=== PATIENT | female | born 1950 | race Caucasian/White ===

== ENCOUNTER → 2018-06-17 | Day surgery (SDC) | payer MEDICARE, OTHER ==
[~2018-06-17] MED LIST: ASPIRIN81 MG PO; ATENOLOL50 MG PO; BIOTIN10 MG PO; CLOPIDOGREL75 MG PO; COLACE100 M1 PO; FENTANYL CITRATE/PF 100MCG/2 ML INJ ONE; FOLIC ACID PO; IRON PO; ISOSORBIDE MONO20 MG PO; ISOSORBIDE PO; METOCLOPRAMIDE HCL 10 MG/2ML VIAL ONE; MIDAZOLAM HCL 2 MG/2 ML VIAL ONE; MORPHINE SULFATE 2 MG/ML SYR ONE; MULTI-VITAMIN1 EACH PO; NORCO 10-325 T1 EACH PO; OMEGA PO; OMEPRAZOLE40 MG PO; POTASSIUM PO; PROPOFOL IV EMULSION 10 MG/ML 20 ML VIAL ONE; SIMVASTATIN20 MG PO; VIT B12 PO; VIT B6 PO; [UNRECOGNIZED DRUG - OTHER] PO
[2018-06-17 14:25] VITALS: BP 143/81
--- NOTE | 2018-06-17 19:02 | Operative Report ---
DATE OF PROCEDURE: June 17, 2018 REFERRING PHYSICIAN: Dr. Guilherme Mejia PROCEDURE PERFORMED: Esophagogastroduodenoscopy with biopsies. INDICATIONS FOR PROCEDURE: Upper abdominal pain, acid reflux. MEDICATION: Patient was done under MAC. Please see anesthesiologist's note. PROCEDURE: With the patient in the left lateral decubitus position, the flexible fiberoptic Olympus gastroscope was introduced into the esophagus under direct visualization without any difficulty. The esophagus appeared to be within normal limits. The scope was then advanced with ease into the stomach, traversing a small hiatal hernia. The patient appears to be status post Shante-en-Y. Anastomosis was intact, but there was some focal nodularity noted at the anastomosis that was biopsied. The scope was then retroflexed, and the fundus appeared to be within normal limits. The scope was then straightened out. Biopsies were obtained from the gastric stump. It was subsequently withdrawn. Patient tolerated the procedure well. IMPRESSION 1. Normal esophagus. 2. Small hiatal hernia. 3. Status post Shante-en-Y, anastomosis intact. Focal nodularity at anastomosis, biopsied. No marginal ulcers were noted. 4. Gastric stump, biopsied. PLAN: Follow up histology. Increase omeprazole to 40 mg 1 p.o. a.c. b.i.d. Add Carafate 1 gram p.o. a.c. t.i.d. and nightly. If the patient's abdominal pain does not improve, we will proceed with CAT scan of the abdomen. Job#: [id number] cc:GUILHERME MEJIA DO
--- OUTSIDE RECORDS SUMMARY | 2018-06-29 10:37 | XMS REPORT | Clinical Summary ---
Author Author [facility] Address Unknown Phone Unavailable Care Team Providers Care Chronometer Assembler Name Role Phone Guilherme Zhang DO PCP Allergies Not on File Current Medications Not on file Active Problems Not on file Encounters Date Type Specialty Care Team Description 12/14/2017 Hospital Procedural Cardiology Capri Sequeira Jr., MD Peripheral vascular Encounter disease 12/14/2017 Hospital Procedural Cardiology Capri Sequeira Jr., MD Peripheral vascular Encounter disease 12/10/2017 Transcribe Access Capri Sequeira Jr., MD Peripheral vascular Orders disease (Primary Dx) after 06/16/2017 Social History Tobacco Use Types Packs/Day Years Used Date Never Assessed Sex Assigned at Date Recorded Not on file Last Filed Vital Signs Not on file Plan of Treatment Health Maintenance Due Date Last Done Comments BREAST CANCER SCREENING 1998 COLON CANCER SCREENING 1998 SHINGRIX VACCINE (#1) 1998 ZOSTER VACCINE 2008 PNEUMOCOCCAL 2013 POLYSACCHARIDE VACCINE AGE 65 AND OVER PNEUMOCOCCAL-13 2013 INFLUENZA VACCINE 04/14/2018 Procedures Procedure Name Priority Date/Time Associated Diagnosis Comments PV PHYSIOLOGIC ARTERIAL Routine 12/14/2017 Peripheral vascular Results for this UPPER EXTREMITY COMPLETE 12:56 PM CDT disease procedure are in the results section. PV PHYSIOLOGIC ARTERIAL Routine 12/14/2017 Peripheral vascular Results for this LOWER EXTREMITY COMPLETE 12:56 PM CDT disease procedure are in the results section. after 06/16/2017 Results * Pv physiologic arterial upper extremity complete (12/14/2017 12:56 PM) Narrative Performed At [facility] Physiologic Arterial Arm Report [id number] [address], [place] [address] Pat.Name:Katie SOTOMAYOR.ID:[id number] .Date: 12/14/2017Refer.MD:CAPRI SEQUEIRA MD Exam Time: 10:58:00 AM Study Type:Physiologic Arm DOBAge:1950,67Y Sex: FEMALE Sonogrphr: Toney Westbrook RN, RVTPat. Stat.:Outpatient TapeVol: DP, CPT - 4: 33544 Echo Event ID:[id number] Order ID:[id number] Reason for Study:bilateral arm weakness. Race: SUMMARY: PULSES: RIGHT LEFT Brachial ++ Radial + + Ulnar + + DOPPLER SIGNALS /ANALOG WAVEFORMS: DOPPLER SIGNALS ANALOG WAVEFORMS ARTERY RIGHT LEFT RIGHT LEFT Subclavian Normal Normal Normal Normal Brachial Normal Normal Normal Normal Radial NormalNormal Normal Normal Ulnar Normal Normal Normal Normal SEGMENTAL PRESSURE: RIGHTLEFT Brachial 148 148 Radial 142 144 Ulnar 143 142 PRELIMINARY FINDINGS: 1.Normal arterial Doppler study of the upper extremities. PHYSICIAN INTERPRETATION: 1.Bilateral upper extremity arterial examination demonstrates no evidenceofocclusive disease. Signed 12/14/2017 03:48 PM Jose J Fox MD Procedure Note Interface, Radiology Results In - 12/14/2017 3:48 PM [facility]T [facility] Physiologic Arterial Arm Report [id number]Name: JUNIOR SOTOMAYOR Tisha.ID: [id number] .Date: 12/14/2017 Refer.MD: CAPRI SEQUEIRA MD Exam Time: 10:58:00 AM Study Type:Physiologic Arm Age: 1 1950,67Y Sex: FEMALE Sonogrphr: Toney Westbrook RN, RVT Pat. Stat.:Outpatient Tape Vol: DP, CPT - 4: 59859 Echo Event ID:[id number] Order ID: [id number] Reason for Study:bilateral arm weakness. Race: SUMMARY: PULSES: RIGHT LEFT Brachial + + Radial + + Ulnar + + DOPPLER SIGNALS / ANALOG WAVEFORMS: DOPPLER SIGNALS ANALOG WAVEFORMS ARTERY RIGHT LEFT RIGHT LEFT Subclavian Normal Normal Normal Normal Brachial Normal Normal Normal Normal Radial Normal Normal Normal Normal Ulnar Normal Normal Normal Normal SEGMENTAL PRESSURE: RIGHT LEFT Brachial 148 148 Radial 142 144 Ulnar 143 142 PRELIMINARY FINDINGS: 1. Normal arterial Doppler study of the upper extremities. PHYSICIAN INTERPRETATION: 1. Bilateral upper extremity arterial examination demonstrates no evidence of occlusive disease. Signed 12/14/2017 03:48 PM Jose J Fox MD Performing Organization Address [facility]/State/Zipcode Phone Number [facility] [address] [place] [address] * Pv physiologic arterial lower extremity complete (12/14/2017 12:56 PM) Narrative Performed At [facility] Physiologic Arterial Leg Report [id number]Name:aKtie SOTOMAYOR.ID:[id number] .Date: 12/14/2017Refer.MD:CAPRI SEQUEIRA MD Exam Time: 10:12:00 AM Study Type:Physiologic Leg DOBAge:1950,67Y Sex: FEMALE Sonogrphr: Toney Westbrook RN, RVTPat. Stat.:Outpatient TapeVol: DP, CPT - 4: 38769 Echo Event ID:[id number] Order ID:[id number] Reason for Study:Tingling and numbness in both feet. Race: SUMMARY: PULSES: RIGHT LEFT Common Femoral + + Popliteal+ + Dorsalis Pedis0 0 Posterior Tibial+ + DOPPLER SIGNALS /ANALOG WAVEFORMS: DOPPLER SIGNALS ANALOG WAVEFORMS ARTERY RIGHT LEFT RIGHT LEFT Common Femoral Normal Normal Normal Normal Superficial Femoral Normal NormalNormalNormal PoplitealNormal NormalNormalNormal Posterior Tibial Normal NormalNormal Normal Dorsalis Pedis Normal NormalNormalNormal SEGMENTAL PRESSURE(mmHg): RIGHT LEFT Brachial 148 146 High Ewabu591 190 Low Goqjn975 182 Calf 077100 Ankle DP 165 167 Ankle [id number] Great Toe [id number] ANKLE/BRACHIAL INDEX: RIGHTLEFT Dorsalis Pedis1.111.13 Posterior Tibial1.09 1.11 TOE/BRACHIAL INDEX: RIGHT LEFT 0.910.89 PRELIMINARY FINDINGS: 1.Normal arterial Doppler study of the lower extremities. PHYSICIAN INTERPRETATION: 1.Bilateral lower extremity arterial exam demonstrates no evidence of occlusive disease. Signed 12/14/2017 04:02 PM Jose J Fox MD Procedure Note Interface, Radiology Results In - 12/14/2017 4:03 PM CDT [facility] Physiologic Arterial Leg Report [id number] [place] [address] Pat.Name: JUNIOR SOTOMAYOR.ID: [id number] St.Date: 12/14/2017 Refer.MD: CAPRI SEQUEIRA MD Exam Time: 10:12:00 AM Study Type:Physiologic Leg Age: 1 1950,67Y Sex: FEMALE Sonogrphr: Toney Westbrook RN, RVT Pat. Stat.:Outpatient Tape Vol: DP, CPT - 4: 79349 Echo Event ID:[id number] Order ID: [id number] Reason for Study:Tingling and numbness in both feet. Race: SUMMARY: PULSES: RIGHT LEFT Common Femoral + + Popliteal + + Dorsalis Pedis 0 0 Posterior Tibial + + DOPPLER SIGNALS / ANALOG WAVEFORMS: DOPPLER SIGNALS ANALOG WAVEFORMS ARTERY RIGHT LEFT RIGHT LEFT Common Femoral Normal Normal Normal Normal Superficial Femoral Normal Normal Normal Normal Popliteal Normal Normal Normal Normal Posterior Tibial Normal Normal Normal Normal Dorsalis Pedis Normal Normal Normal Normal SEGMENTAL PRESSURE (mmHg): RIGHT LEFT Brachial 148 146 High Thigh 192 190 Low Thigh 184 182 Calf 177 170 Ankle DP 165 167 Ankle PT 162 164 Great Toe 134 132 ANKLE/BRACHIAL INDEX: RIGHT LEFT Dorsalis Pedis 1.11 1.13 Posterior Tibial 1.09 1.11 TOE/BRACHIAL INDEX: RIGHT LEFT 0.91 0.89 PRELIMINARY FINDINGS: 1. Normal arterial Doppler study of the lower extremities. PHYSICIAN INTERPRETATION: 1. Bilateral lower extremity arterial exam demonstrates no evidence of occlusive disease. Signed 12/14/2017 04:02 PM Jose J Fox MD Performing Organization Address City/State/Zipcode Phone Number [facility] [address] [place] [address] after 06/16/2017 Insurance Payer Benefit Subscriber ID Type Phone Address Plan / Group MEDICARE MEDICARE xxxxxxxxxx Medicare [place], [place] PART A AND B COMMERCIAL MISC MISC xxxxxxxxxxxx Commercial COMMERCIAL
--- OUTSIDE RECORDS SUMMARY | 2018-06-29 10:37 | XMS REPORT | Continuity of Care Document ---
Author Author [facility] Interface Address Unknown Phone Unavailable Problems Problem Status Onset Date Classification Date Reported Comments Source RT KNEE OA Active 11/25/2016 [facility] Final: Pain in left knee 12/27/2016 [facility] [place] [place] Final: Muscle weakness 12/27/2016 [facility] [place] Final: Stiffness of unspecified knee, not elsewhere classified 12/27/2016 [facility] [place] Final: Difficulty in walking, not elsewhere classified 12/27/2016 [facility] [place] UNILATERAL PRIMARY OSTEOARTHRITIS, RIGHT Active [facility] [place] UNILATERAL PRIMARY OSTEOARTHRITIS, LEFT Active [facility] [place] PAIN IN RIGHT KNEE Active [facility] [place] PAIN IN LEFT KNEE Active [facility] [place] MUSCLE WEAKNESS (GENERALIZED) Active [facility] [place] STIFFNESS OF UNSPECIFIED KNEE, NOT ELSEW Active [facility] [place] DIFFICULTY IN WALKING, NOT ELSEWHERE CLA Active [facility] [place] Medications Medication Details Route Status Patient Instructions Ordering Provider Order Date Source Allergies, Adverse Reactions, Alerts Substance Category Reaction Severity Reaction type Status Date Reported Comments Source iodine Assertion Drug allergy Active [facility] [place] Immunizations Immunization Date Given Site Status Last Updated Comments Source Results Order Name Results Value Reference Range Date Interpretation Comments Source Vital Signs Vital Sign Value Date Comments Source Encounters Location Location Details Encounter Type Encounter Number Reason For Visit Attending Provider ADM Date DC Date Status Source [facility] [id number] Marlon Aleman 11/25/2016 12/25/2016 [facility] [id number] Marlon Aleman 12/26/2016 01/25/2017 [facility] [place] Procedures Procedure Code Date Perfomer Comments Source
--- OUTSIDE RECORDS SUMMARY | 2018-06-29 10:37 | XMS REPORT | Summary of Care ---
Author Author [facility] Address Unknown Phone Unavailable Encounter [facility] Encntr_alias(FIN) [id number] Date(s): 11/25/16 - 12/24/16 [facility] Final: Pain in left knee Final: Muscle weakness (generalized) Final: Stiffness of unspecified knee, not elsewhere classified Final: Difficulty in walking, not elsewhere classified Discharge Disposition: Home or Self Care Attending Physician: Marlon Aleman MD Vital Signs No data available for this section Problem List No data available for this section Allergies, Adverse Reactions, Alerts Substance Reaction Severity Status iodine Active Medications No data available for this section Results No data available for this section Immunizations No data available for this section Procedures No data available for this section Social History No data available for this section Assessment and Plan No data available for this section
--- OUTSIDE RECORDS SUMMARY | 2018-06-29 10:37 | XMS REPORT | Summary of Care ---
Author Author [facility] Address Unknown Phone Unavailable Encounter [facility] Encntr_alishanti([facility]) [id number] Date(s): 12/26/16 - 01/24/17 [facility], [facility] Discharge Disposition: Home or Self Care Attending [...]
== END | disposition home or self-care (01) ==
LOC: ENDO 10:35
PROVIDERS: ATTEND Internal Medicine Gastroenterology
DX: K29.50 Unspecified chronic gastritis without bleeding (principal); K21.9 Gastro-esophageal reflux disease without esophagitis; K44.9 Diaphragmatic hernia without obstruction or gangrene; Z98.84 Bariatric surgery status; I25.10 Atherosclerotic heart disease of native coronary artery without angina pectoris; I10 Essential (primary) hypertension; E16.2 Hypoglycemia, unspecified; E78.00 Pure hypercholesterolemia, unspecified; Z91.041 Radiographic dye allergy status; Z79.82 Long term (current) use of aspirin; Z79.02 Long term (current) use of antithrombotics/antiplatelets; Z90.49 Acquired absence of other specified parts of digestive tract; Z95.5 Presence of coronary angioplasty implant and graft
CPT/HCPCS: 43239; 88305; 88312; J2250; J2270; J2765

== ENCOUNTER → 2018-07-05 | Outpatient (CLI) | payer MEDICARE, OTHER ==
[~2018-07-05] MED LIST changes: -FENTANYL CITRATE/PF 100MCG/2 ML INJ ONE; +IOPAMIDOL 370 MG/ML 200 ML INFUS..BTL INJ ONE; -METOCLOPRAMIDE HCL 10 MG/2ML VIAL ONE; -MIDAZOLAM HCL 2 MG/2 ML VIAL ONE; -MORPHINE SULFATE 2 MG/ML SYR ONE; -PROPOFOL IV EMULSION 10 MG/ML 20 ML VIAL ONE; +SODIUM CHLORIDE 0.9% 50ML 50 ML ONE
[2018-07-05 14:36] LABS: BLOOD UREA NITROGEN 14 mg/dL (7-26); BUN/CREATININE RATIO 19 (6-25); CREATININE, SERUM 0.74 mg/dL (0.57-1.11); EST GLOMERULAR FILTRATION RATE > 60 ML/MIN (60-)
--- NOTE | 2018-07-05 15:55 | Diagnostic Imaging Report ---
EXAM: CT Abdomen and Pelvis WITH contrast INDICATION: Abdominal pain COMPARISON: None. TECHNIQUE: Abdomen and Pelvis was scanned utilizing a multidetector helical scanner after administration of IV contrast. Coronal and sagittal reformations were obtained. IV CONTRAST: 100 mL Isovue-370 COMPLICATIONS: None RADIATION DOSE: Total DLP:633 mGy*cm Estimated effective dose: (DLP x 0.015 x size factor) mSv CTDIvol has been reviewed. It is below the limits set by the Radiation Protocol Committee (RPC). Appropriate CT dose reduction techniques were utilized. FINDINGS: Abdomen: Lung Bases: Atelectasis. Solid Organs: Cholecystectomy clips. There is a simple cyst in the left kidney and a possible punctate nonobstructing calculus series 2 image 27. Otherwise, the liver, adrenals, kidneys, spleen, and pancreas are unremarkable. Upper GI Tract: Small hiatal hernia. Post surgical changes GE junction. No small bowel obstructive changes. Vascularity: Minimal aortic vascular calcifications with no aneurysm. Lymph Nodes: No suspicious adenopathy. Other: None. Pelvis: Bladder: Unremarkable. Other: Uterus absent. Colon: Diverticulosis present, most notably sigmoid colon, without distinct CT evidence of diverticulitis. Bones: Moderate degenerative changes spine. IMPRESSION: 1. No distinct acute changes within the abdomen or pelvis. 2. Chronic appearing changes as detailed above. Signed by: Dr. Ced Rincon MD on 07/05/2018 3:52 PM
== END ==
LOC: CT 13:26
PROVIDERS: ATTEND Internal Medicine Gastroenterology
DX: R10.9 Unspecified abdominal pain (principal)
CPT/HCPCS: 36415; 74177; 82565; 84520; Q9967